=== PATIENT | female | born 2000 | race African-American/Black ===

== ENCOUNTER 2022-09-29 15:12 | Inpatient (IN) ==
[2022-09-29 17:20] LABS: ABS Basophils 0.1 10^3/ul (0-0.2); ABS Monocytes 0.6 10^3/ul (0-0.8); ABS Neutrophils 6.7 10^3/ul (1.5-7.7); Eosinophil % 0.3 %; Hematocrit 43 % (35-47); Lymphocyte % 21.2 %; Mean Corpuscular HGB Conc 33 g/dL (31-36); Mean Corpuscular Hemoglobin 29 pg (27-31); Mean Corpuscular Volume 88 fL (80-97); Mean Platelet Volume 7.8 fL (7.4-10.4); Platelet Count 332 10^3/uL (150-450); Red Blood Count 4.86 10^6 /uL (3.70-4.87); Red Cell Distribution Width 14 % (10-15); White Blood Count 9.4 10^3/uL (3.5-10.8)
[2022-09-29 17:47] LABS: HCG Pregnancy < 0.60 mIU/mL
[2022-09-29 17:48] LABS: ALT 11 U/L (7-52); AST 17 U/L (13-39); Acetaminophen < 15 mcg/mL; Albumin 4.5 g/dL (3.2-5.2); Albumin/Globulin Ratio 1.3 (1-3); Alcohol, S < 13 mg/dL (<13); Alkaline Phosphatase 93 U/L (35-149); Anion Gap 8 mmol/L (2-11); Blood Urea Nitrogen 11 mg/dL (6-24); CO2 Carbon Dioxide 24 mmol/L (22-32); Calcium 9.7 mg/dL (8.6-10.3); Chloride 106 mmol/L (101-111); Creatinine, Serum 0.83 mg/dL (0.51-0.95); Globulin 3.5 g/dL (2-4); Glucose 81 mg/dL (70-100); Potassium 4.1 mmol/L (3.5-5.0); Salicylate < 2.50 mg/dL (<30); Sodium 138 mmol/L (135-145); eGFR CKD-EPI 103.4 (>60)
[2022-09-29 17:55] LABS: TSH Ultra Thyroid Stim Horm 0.87 mcIU/mL (0.34-5.60)
[2022-09-29 18:04] LABS: Urine Benzodiazepine Screen None Detected (None Detect); Urine Cannabinoids Screen None Detected (None Detect); Urine Opiates Screen None Detected (None Detect)
[2022-09-29] MEDS ORDERED: Al Hydrox/Mg Hydrox/Simet LIQ 30 ML UDC PO PRN (20:11)
[2022-09-30] MEDS: Vitamin THERAPEUTIC TAB PO SCH (09:59)
[2022-10-01] MEDS: Vitamin THERAPEUTIC TAB PO SCH (09:16)
[2022-10-02] MEDS: Vitamin THERAPEUTIC TAB PO SCH (09:40)
[2022-10-03] MEDS: Vitamin THERAPEUTIC TAB PO SCH (09:35)
[2022-10-03 09:53] VITALS: BP 123/55
== END 2022-10-03 16:38 | disposition home or self-care (01) | DRG 751 ==
LOC: ED 15:12 → BSU 20:29
PROVIDERS: ADMIT Psychiatry & Neurology Psychiatry; ATTEND Psychiatry & Neurology Psychiatry